=== PATIENT | female | born 1950 | race Caucasian/White ===

== ENCOUNTER 2018-01-12 07:17 | Day surgery (SDC) | payer MEDICARE, MEDICAID ==
[~2018-01-12 07:17] MED LIST: Cefuroxime 10 MG/ML SYRINGE EYELF SCH; Pilocarpine 4% Ophth Soln 15 ML Bot EYELF SCH
[2018-01-12] MEDS: Polymyxin B/Trimethoprim 10 ML Bottle EYELF SCH ×3 (07:27→09:04)
[2018-01-12] MEDS: Brimonidine 0.2% Ophth Soln 5 ML Bottle EYELF SCH ×3 (07:32→09:04)
[2018-01-12] MEDS: Phenylephrine 2.5% Ophth Soln 2 ML Bot EYELF SCH ×5 (07:37→08:45)
[2018-01-12] MEDS ORDERED: Lidocaine 1% 50 ML MDV INJECT SCH (07:45)
--- NOTE | 2018-01-12 07:46 | PCM.PREANE ---
Preanesthetic Assessment - Procedure Proposed Procedure: Left Eye cataract extraction with implant - Anesthesia/Transfusion/Family Hx Anesthesia History: Prior Anesthesia Without Reaction Family History of Anesthesia Reaction: No Transfusion History: No Prior Transfusion(s) - Review of Systems General: No Symptoms Pulmonary: No Symptoms Cardiovascular: No Symptoms, Other (pacemaker no issues with it, placed for high heart rate per patient ) Gastrointestinal: No Symptoms Neurological: No Symptoms Other: Reports: Diabetes (on oral med ), Thyroid Problems (hypothyroid) - Physical Assessment NPO Status Date: 01/11/18 NPO Status Time: 21:30 O2 Sat by Pulse Oximetry: 97 Respiratory Rate: 16 Vital Signs: Last Vital Signs Temp 36.4 C 01/12/18 07:20 Pulse 70 01/12/18 07:20 Resp 16 01/12/18 07:20 BP 157/66 H 01/12/18 07:20 Pulse Ox 97 01/12/18 07:20 Height: 1.52 m Weight: 61.235 kg ASA Class: 2 Mental Status: Alert & Oriented x3 Airway Class: Mallampati = 1 Dentition: Reports: Missing Tooth/Teeth Thyro-Mental Finger Breadths: 3 Mouth Opening Finger Breadths: 5 ROM/Head Extension: Full Lungs: Clear to Auscultation, Normal Respiratory Effort Cardiovascular: Regular Rate, Regular Rhythm - Allergies Allergies/Adverse Reactions: Allergies Allergy/AdvReac Type Severity Reaction Status Date / Time Penicillins Allergy Swollen Verified 01/11/18 15:35 Tongue prochlorperazine Allergy Swollen Verified 01/11/18 15:35 [From Compazine] Tongue prochlorperazine edisylate Allergy Swollen Verified 01/11/18 15:35 [From Compazine] Tongue prochlorperazine maleate Allergy Swollen Verified 01/11/18 15:35 [From Compazine] Tongue - Blood Blood Available: No - Anesthesia Plan Beta Kerline: Metoprolol Med Last Dose Date: 01/11/18 Med Last Dose Time: 19:30 - Acknowledgements Anesthesia Type Planned: MAC Pt an Appropriate Candidate for the Planned Anesthesia: Yes Alternatives and Risks of Anesthesia Discussed w Pt/Guardian: Yes Pt/Guardian Understands and Agrees with Anesthesia Plan: Yes PreAnesthesia Questionnaire Other HEENT History: wears eyeglasses Cardiovascular History: Reports: High Cholesterol, Hypertension, Pacemaker Genitourinary History: Reports: Renal Calculus Musculoskeletal History: Reports: Osteoarthritis Neurological History: Reports: None Psychiatric History: Reports: None Endocrine/Metabolic History: Reports: Diabetes, Type II, Hypothyroidism Hematologic History: Reports: None Immunologic History: Reports: None Oncologic (Cancer) History: Reports: None Dermatologic History: Reports: None - Past Surgical History Cardiovascular Surgical History: Reports: Coronary Artery Stent, Pacer - SUBSTANCE USE Smoking Status *Q: Never Smoker Recreational Drug Use History: No - HOME MEDS Home Medications: Home Meds Acetaminophen [Tylenol] 500 mg PO DAILY PRN 08/24/15 [History] Aspirin 81 mg PO DAILY 08/24/15 [History] Lisinopril 5 mg PO DAILY 08/24/15 [History] Metoprolol Succinate [Toprol XL] 75 mg PO BID 08/24/15 [History] Nitroglycerin [Nitrostat] 0.4 mg SL ASDIRECTED PRN 08/24/15 [History] Rosuvastatin [Crestor] 20 mg PO DAILY 08/24/15 [History] metFORMIN [Glucophage] 500 mg PO BID 08/24/15 [History] Levothyroxine 125 mg PO DAILY 01/11/18 [History] - CURRENT (IN HOUSE) MEDS Current Meds: Current Medications Brimonidine Tartrate (Alphagan 0.2% Ophth Soln) 0 ml EYELF ASDIRECTED NAM Stop: 01/12/18 18:00 Last Admin: 01/12/18 07:32 Dose: 1 drop Cefuroxime Sodium (Zinacef) 0 mg EYELF ASDIRECTED NAM Stop: 01/12/18 18:00 Lidocaine HCl (Xylocaine 1%) 1 ml INJECT ONETIME NAM Phenylephrine HCl (Herb-Synephrine 2.5% Ophth Soln) 0 ml EYELF ASDIRECTED NAM Stop: 01/12/18 18:00 Last Admin: 01/12/18 07:37 Dose: 1 drop Pilocarpine HCl (Pilocar 4% Ophth Soln) 0 ml EYELF ASDIRECTED NAM Stop: 01/12/18 18:00 Polymyxin/Trimethoprim Sulfate (Polytrim Ophth Soln) 0 ml EYELF ASDIRECTED NAM Stop: 01/12/18 18:00 Last Admin: 01/12/18 07:27 Dose: 1 drop Tetracaine HCl (Tetracaine 0.5% Steri-Unit Veronika) 0 ml EYELF ASDIRECTED NAM Stop: 01/12/18 18:00 Tropicamide (Mydriacyl 1% Ophth Soln) 0 ml EYELF ASDIRECTED NAM Stop: 01/12/18 18:00
[2018-01-12] MEDS: Tetracaine HCl/PF 0.5% 4 ML Bottle EYELF SCH ×2 (08:30→08:50)
[2018-01-12 09:14] VITALS: BP 157/76
--- NOTE | 2018-01-12 09:14 | PCM48HPAN ---
Post Anesthesia Note - EVALUATION WITHIN 48HRS OF ANESTHETIC Vital Signs in Normal Range: Yes Patient Participated in Evaluation: Yes Respiratory Function Stable: Yes Airway Patent: Yes Cardiovascular Function Stable: Yes Hydration Status Stable: Yes Pain Control Satisfactory: Yes Nausea and Vomiting Control Satisfactory: Yes Mental Status Recovered: Yes Pulse Rate: 62 SaO2: 97 Resp Rate: 16 Temperature: 36.6 C Blood Pressure: 157/76
== END 2018-01-12 09:19 | disposition home or self-care (01) ==
LOC: JD.SDS 07:17
PROVIDERS: ATTEND Ophthalmology
DX: H26.9 Unspecified cataract (principal); H21.81 Floppy iris syndrome; H21.42 Pupillary membranes, left eye; I10 Essential (primary) hypertension; E11.9 Type 2 diabetes mellitus without complications; E78.00 Pure hypercholesterolemia, unspecified; Z90.49 Acquired absence of other specified parts of digestive tract; Z95.0 Presence of cardiac pacemaker; Z79.82 Long term (current) use of aspirin; Z79.84 Long term (current) use of oral hypoglycemic drugs; Z79.899 Other long term (current) drug therapy
CPT/HCPCS: A9270-GY

== ENCOUNTER 2018-02-09 09:27 | Day surgery (SDC) | payer MEDICARE, MEDICAID ==
[~2018-02-09 09:27] MED LIST changes: -Cefuroxime 10 MG/ML SYRINGE EYELF SCH; +Cefuroxime 10 MG/ML SYRINGE EYERT SCH; +Lidocaine 1% PF 2 ML SDV INJECT SCH; -Pilocarpine 4% Ophth Soln 15 ML Bot EYELF SCH; +Pilocarpine 4% Ophth Soln 15 ML Bot EYERT SCH
[2018-02-09] MEDS: Polymyxin B/Trimethoprim 10 ML Bottle EYERT SCH ×3 (10:17→12:08)
[2018-02-09] MEDS: Brimonidine 0.2% Ophth Soln 5 ML Bottle EYERT SCH ×3 (10:22→12:08)
[2018-02-09] MEDS: Phenylephrine 2.5% Ophth Soln 2 ML Bot EYERT SCH ×5 (10:27→11:44)
--- NOTE | 2018-02-09 10:27 | PCM.PREANE ---
Preanesthetic Assessment - Procedure Proposed Procedure: cataract right - Anesthesia/Transfusion/Family Hx Anesthesia History: Prior Anesthesia Without Reaction Family History of Anesthesia Reaction: No Transfusion History: No Prior Transfusion(s) - Review of Systems General: No Symptoms Pulmonary: No Symptoms Cardiovascular: No Symptoms Gastrointestinal: No Symptoms Neurological: No Symptoms Other: Reports: Diabetes, Thyroid Problems - Physical Assessment NPO Status Date: 02/08/18 NPO Status Time: 21:00 O2 Sat by Pulse Oximetry: 99 Respiratory Rate: 16 Vital Signs: Last Vital Signs Temp 97.9 F 02/09/18 10:10 Pulse 78 02/09/18 10:10 Resp 16 02/09/18 10:10 BP 133/75 02/09/18 10:10 Pulse Ox 99 02/09/18 10:10 Height: 5 ft Weight: 61.235 kg ASA Class: 2 Mental Status: Alert & Oriented x3 Airway Class: Mallampati = 1 Dentition: Reports: Missing Tooth/Teeth Thyro-Mental Finger Breadths: 3 Mouth Opening Finger Breadths: 3 ROM/Head Extension: Full Lungs: Clear to Auscultation, Normal Respiratory Effort Cardiovascular: Regular Rate, Regular Rhythm - Allergies Allergies/Adverse Reactions: Allergies Allergy/AdvReac Type Severity Reaction Status Date / Time Penicillins Allergy Swollen Verified 02/08/18 11:36 Tongue prochlorperazine Allergy Swollen Verified 02/08/18 11:36 [From Compazine] Tongue prochlorperazine edisylate Allergy Swollen Verified 02/08/18 11:36 [From Compazine] Tongue prochlorperazine maleate Allergy Swollen Verified 02/08/18 11:36 [From Compazine] Tongue - Blood Blood Available: No - Anesthesia Plan Pre-Op Medication Ordered: Beta Kerline Beta Kerline: Metoprolol Med Last Dose Date: 02/09/18 Med Last Dose Time: 06:30 - Acknowledgements Anesthesia Type Planned: MAC Pt an Appropriate Candidate for the Planned Anesthesia: Yes Alternatives and Risks of Anesthesia Discussed w Pt/Guardian: Yes Pt/Guardian Understands and Agrees with Anesthesia Plan: Yes PreAnesthesia Questionnaire Other HEENT History: wears eyeglasses Cardiovascular History: Reports: High Cholesterol, Hypertension, Pacemaker Respiratory History: Reports: None Gastrointestinal History: Reports: GERD (seldom) Genitourinary History: Reports: Renal Calculus Musculoskeletal History: Reports: Osteoarthritis Neurological History: Reports: None Psychiatric History: Reports: None Endocrine/Metabolic History: Reports: Diabetes, Type II, Hypothyroidism Hematologic History: Reports: None Immunologic History: Reports: None Oncologic (Cancer) History: Reports: None Dermatologic History: Reports: None - Past Surgical History HEENT Surgical History: Reports: Cataract Surgery Cardiovascular Surgical History: Reports: Coronary Artery Stent, Pacer - SUBSTANCE USE Smoking Status *Q: Never Smoker Tobacco Use Within Last Twelve Months: No Second Hand Smoke Exposure: Yes Days Per Week of Alcohol Use: 0 Recreational Drug Use History: No - HOME MEDS Home Medications: Home Meds Acetaminophen [Tylenol] 500 mg PO DAILY PRN 08/24/15 [History] Aspirin 81 mg PO DAILY 08/24/15 [History] Lisinopril 5 mg PO DAILY 08/24/15 [History] Metoprolol Succinate [Toprol XL] 75 mg PO BID 08/24/15 [History] Nitroglycerin [Nitrostat] 0.4 mg SL ASDIRECTED PRN 08/24/15 [History] Rosuvastatin [Crestor] 20 mg PO DAILY 08/24/15 [History] metFORMIN [Glucophage] 500 mg PO BID 08/24/15 [History] Levothyroxine 125 mg PO DAILY 01/11/18 [History] - CURRENT (IN HOUSE) MEDS Current Meds: Current Medications Brimonidine Tartrate (Alphagan 0.2% Ophth Soln) 0 ml EYERT ASDIRECTED NAM Stop: 02/09/18 18:00 Cefuroxime Sodium (Zinacef) 0 mg EYERT ASDIRECTED NAM Stop: 02/09/18 18:00 Lidocaine HCl (Xylocaine-Mpf 1%) 10 ml INJECT ASDIRECTED NAM Stop: 02/09/18 18:00 Phenylephrine HCl (Herb-Synephrine 2.5% Ophth Soln) 0 ml EYERT ASDIRECTED NAM Stop: 02/09/18 18:00 Pilocarpine HCl (Pilocar 4% Ophth Soln) 0 ml EYERT ASDIRECTED NAM Stop: 02/09/18 18:00 Polymyxin/Trimethoprim Sulfate (Polytrim Ophth Soln) 0 ml EYERT ASDIRECTED NAM Stop: 02/09/18 18:00 Last Admin: 02/09/18 10:17 Dose: 1 drop Tetracaine HCl (Tetracaine 0.5% Steri-Unit Veronika) 0 ml EYERT ASDIRECTED NAM Stop: 02/09/18 18:00 Tropicamide (Mydriacyl 1% Oph Soln) 0 ml EYERT ASDIRECTED NAM Stop: 02/09/18 18:00
[2018-02-09] MEDS: Tetracaine HCl/PF 0.5% 4 ML Bottle EYERT SCH ×2 (11:35→11:59)
--- NOTE | 2018-02-09 12:13 | PCM48HPAN ---
Post Anesthesia Note - EVALUATION WITHIN 48HRS OF ANESTHETIC Patient Participated in Evaluation: Yes Respiratory Function Stable: Yes Airway Patent: Yes Cardiovascular Function Stable: Yes Hydration Status Stable: Yes Pain Control Satisfactory: Yes Nausea and Vomiting Control Satisfactory: Yes Mental Status Recovered: Yes Pulse Rate: 63 SaO2: 100 Resp Rate: 16 Temperature: 97.5 C Blood Pressure: 143/74
[2018-02-09 12:24] VITALS: BP 139/70
== END 2018-02-09 12:20 | disposition home or self-care (01) ==
LOC: JD.SDS 09:27
PROVIDERS: ATTEND Ophthalmology
DX: H26.9 Unspecified cataract (principal); E11.36 Type 2 diabetes mellitus with diabetic cataract; I10 Essential (primary) hypertension; E78.00 Pure hypercholesterolemia, unspecified; Z79.82 Long term (current) use of aspirin; Z79.84 Long term (current) use of oral hypoglycemic drugs; Z79.899 Other long term (current) drug therapy; Z88.0 Allergy status to penicillin; Z88.8 Allergy status to other drugs, medicaments and biological substances
CPT/HCPCS: 66984; J0697; V2632; A9270-GY

== ENCOUNTER 2018-04-28 03:45 | Emergency (ER) | payer MEDICARE, MEDICAID ==
[2018-04-28 03:51] VITALS: BP 164/73
--- NOTE | 2018-04-28 03:55 | EDM.PDOC ---
ED HPI GENERAL MEDICAL PROBLEM - General Chief Complaint: Cardiovascular Problem Stated Complaint: [facility] Time Seen by Provider: 04/28/18 03:54 Source of Information: Reports: Patient History Limitations: Reports: No Limitations - History of Present Illness INITIAL COMMENTS - FREE TEXT/NARRATIVE: 67-year-old female presents the ED per ambulance from [place]. She is feeling lightheaded ,dizzy and nauseated. She started a new medication I believe Zoloft yesterday afternoon. She started to feel unwell couple hours after this. She did not eat any supper last night. She such only has developed nausea with dry heaves and one small bilious emesis. She also has had 3 very mild loose stools. No blood noted. She feels unstable when she is up and walking as if she is off balance. She has not fallen. She still feels extremely nauseated at this time. No chest pain. For a while she broke out in a cold sweat. She was concerned this might be related to her heart. She was just in see Dr. Solares yesterday at the clinic and had complete 3 month checkup. Blood work was ordered at that time and sent to [facility] for evaluation including her thyroid function studies. Her on Zoloft 25 mg tablet yesterday afternoon because she is feeling somewhat depressed with mood volatility. She is not aware of any fever or chills. Onset: Sudden Onset Date: 04/27/18 Onset Time: 17:00 Duration: Hour(s): Location: Reports: Head (Feels dizzy lightheaded and offkilter with walking.), Other (Nausea and loose stools 3.) Quality: Reports: Other (Off balance feeling with associated nausea.) Severity: Moderate Improves with: Reports: Rest Worsens with: Reports: Movement Context: Denies: Activity, Exercise, Lifting, Sick Contact, Trauma, Other Associated Symptoms: Reports: Diaphoresis, Loss of Appetite, Malaise, Nausea/ Vomiting, Weakness (Nausea and dry heaves.). 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.) - Related Data Allergies Allergy/AdvReac Type Severity Reaction Status Date / Time Penicillins Allergy Swollen Verified 04/28/18 03:51 Tongue prochlorperazine Allergy Swollen Verified 04/28/18 03:51 [From Compazine] Tongue prochlorperazine edisylate Allergy Swollen Verified 04/28/18 03:51 [From Compazine] Tongue prochlorperazine maleate Allergy Swollen Verified 04/28/18 03:51 [From Compazine] Tongue Home Meds: Home Meds Acetaminophen [Tylenol] 500 mg PO DAILY PRN 08/24/15 [History] Aspirin 81 mg PO DAILY 08/24/15 [History] Lisinopril 2.5 mg PO DAILY 08/24/15 [History] Metoprolol Succinate [Toprol XL] 75 mg PO BID 08/24/15 [History] Nitroglycerin [Nitrostat] 0.4 mg SL ASDIRECTED PRN 08/24/15 [History] Rosuvastatin [Crestor] 20 mg PO DAILY 08/24/15 [History] metFORMIN [Glucophage] 500 mg PO BID 08/24/15 [History] Levothyroxine 125 mg PO DAILY 01/11/18 [History] Sertraline [Zoloft] 25 mg PO DAILY 04/28/18 [History] Past Medical History Other HEENT History: wears eyeglasses Cardiovascular History: Reports: High Cholesterol, Hypertension, Pacemaker Respiratory History: Reports: None Gastrointestinal History: Reports: GERD Genitourinary History: Reports: Renal Calculus Musculoskeletal History: Reports: Osteoarthritis Neurological History: Reports: None Psychiatric History: Reports: None Endocrine/Metabolic History: Reports: Diabetes, Type II, Hypothyroidism Hematologic History: Reports: None Immunologic History: Reports: None Oncologic (Cancer) History: Reports: None Dermatologic History: Reports: None - Past Surgical History HEENT Surgical History: Reports: Cataract Surgery Cardiovascular Surgical History: Reports: Coronary Artery Stent, Pacer Social & Family History - Family History Family Medical History: Noncontributory Oncologic: Reports: None - Tobacco Use Smoking Status *Q: Never Smoker - Caffeine Use Caffeine Use: Reports: Coffee - Recreational Drug Use Recreational Drug Use: No - Living Situation & Occupation Occupation: Employed ED ROS GENERAL - Review of Systems Review Of Systems: See Below Constitutional: Reports: Malaise, Weakness, Fatigue, Decreased Appetite. Denies : Fever, Chills HEENT: Reports: Glasses. Denies: Vertigo Respiratory: Denies: Shortness of Breath, Wheezing, Pleuritic Chest Pain, Cough , Sputum Cardiovascular: Reports: Blood Pressure Problem, Lightheadedness, Other (Sense of feeling off balance with walking). Denies: Chest Pain, Claudication, Dyspnea on Exertion, Edema, Orthopnea (Elevated blood pressure), Palpitations, PND, Syncope Endocrine: Reports: No Symptoms GI/Abdominal: Reports: Diarrhea, Decreased Appetite, Nausea, Vomiting (1 small emesis.). Denies: Abdominal Pain : Reports: No Symptoms Musculoskeletal: Reports: No Symptoms Skin: Reports: Diaphoresis (For short period of time before she dry heave.) Neurological: Reports: Dizziness, Difficulty Walking (Feeling off balance with walking.). Denies: Confusion Psychiatric: Reports: Depression, Mood Lability Hematologic/Lymphatic: Reports: No Symptoms Immunologic: Reports: No Symptoms ED EXAM, GENERAL - Physical Exam Exam: See Below Exam Limited By: No Limitations General Appearance: Alert, WD/WN, No Apparent Distress, Other (Vital signs are normal and she is not orthostatic. She is mildly hypertensive at this time.) Eye Exam: Right Eye: Nystagmus (She does have mild right-sided nystagmus with 4- 5 beats on lateral gaze.), Bilateral Eye: Normal Inspection, PERRL Ears: Normal TMs Throat/Mouth: Normal Inspection, Normal Lips, Normal Teeth, Normal Oropharynx Head: Atraumatic, Normocephalic Neck: Normal Inspection, Supple, Non-Tender, Full Range of Motion Respiratory/Chest: No Respiratory Distress, Lungs Clear, Normal Breath Sounds, No Accessory Muscle Use Cardiovascular: Normal Peripheral Pulses, Regular Rate, Rhythm, No Edema, No Gallop, No Murmur Peripheral Pulses: 2+: Posterior Tibial (L), Posterior Tibial (R), Dorsalis Pedis (L), Dorsalis Pedis (R) GI/Abdominal: Normal Bowel Sounds, Soft, Non-Tender, No Organomegaly, No Abnormal Bruit, No Mass, Other (Previous appendectomy scar right lower quadrant and open.) Back Exam: Normal Inspection, Full Range of Motion. No: CVA Tenderness (L), CVA Tenderness (R) Extremities: Normal Inspection, Normal Range of Motion, Non-Tender, No Pedal Edema Neurological: Alert, Oriented, CN II-XII Intact, Normal Cognition, No Motor/ Sensory Deficits, Other (Normal finger to nose assessment normal rapid alternating movements. No pronator drift. No tremor) Psychiatric: Normal Affect, Normal Mood Skin Exam: Warm, Dry, Intact, Normal Color, No Rash EKG INTERPRETATION EKG Date: 04/28/18 Time: 03:52 Rhythm: NSR Rate (Beats/Min): 70 [place]: Normal P-Wave: Present QRS: Other (There is early R-wave transition consider septal hypertrophy pattern.) ST-T: Other (Diffuse T-wave flattening with repolarization abnormality.) QT: Prolonged (QT interval is moderately prolonged at 533. QTC is 571.) EKG Interpretation Comments: Abnormal ECG Course - Vital Signs Last Recorded V/S: Last Vital Signs Temp 36.2 C 04/28/18 03:46 Pulse 73 04/28/18 03:46 Resp 16 04/28/18 03:46 BP 164/73 H 04/28/18 03:46 Pulse Ox 96 04/28/18 03:46 Orthostatic Blood Pressure [ 150/79 Standing] Orthostatic Blood Pressure [ 154/75 Sitting] Orthostatic Blood Pressure [ 164/73 Supine] - Orders/Labs/Meds Orders: Active Orders 24 hr Category Date Time Status EKG Documentation Completion [RC] STAT Care 04/28/18 04:14 Active URINALYSIS W/MICROSCOPIC [UA W/MICROSCOPIC] [URIN] Stat Lab 04/28/18 05:39 Ordered Sodium Chloride 0.9% [Normal Saline] 1,000 ml Med 04/28/18 04:15 Active IV ASDIRECTED Medication Orders Sodium Chloride (Normal Saline) 1,000 mls @ 200 mls/hr IV ASDIRECTED NAM Last Admin: 04/28/18 04:21 Dose: 200 mls/hr Labs: Laboratory Tests 04/28/18 04/28/18 Range/Units 04:25 04:25 WBC 10.13 H (3.98-10.04) K/mm3 RBC 4.17 (3.98-5.22) M/mm3 Hgb 12.0 (11.2-15.7) gm/L Hct 37.2 (34.1-44.9) % MCV 89.2 (79.4-94.8) fl MCH 28.8 (25.6-32.2) pg MCHC 32.3 (32.2-35.5) g/dl RDW Std Deviation 43.2 (36.4-46.3) fL Plt Count 270 (182-369) K/mm3 MPV 9.0 L (9.4-12.3) fl Neutrophils % (Manual) 87 H (40-60) % Band Neutrophils % 1 (0-10) % Lymphocytes % (Manual) 6 L (20-40) % Atypical Lymphs % 0 % Monocytes % (Manual) 5 (2-10) % Eosinophils % (Manual) 0 L (0.7-5.8) % Basophils % (Manual) 0 L (0.1-1.2) Metamyelocytes % 1 Platelet Estimate Adequate RBC Morph Comment Normal Sodium 138 (136-145) mEq/L Potassium 3.4 L (3.5-5.1) mEq/L Chloride 103 (98-107) mEq/L Carbon Dioxide 26 (21-32) mEq/L Anion Gap 12.4 (5-15) BUN 17 (7-18) mg/dL Creatinine 1.4 H (0.55-1.02) mg/dL Est Cr Clr Drug Dosing 28.01 mL/min Estimated GFR (MDRD) 38 (>60) mL/min BUN/Creatinine Ratio 12.1 L (14-18) Glucose 207 H (80-115) mg/dL Calcium 9.3 (8.5-10.1) mg/dL Magnesium 1.7 L (1.8-2.4) mg/dl Total Bilirubin 0.4 (0.2-1.0) mg/dL AST 22 (15-37) U/L ALT 17 (14-59) U/L Alkaline Phosphatase 72 (46-116) U/L Troponin I < 0.017 (0.00-0.056) ng/mL C-Reactive Protein < 0.2 (<1.0) mg/dL Total Protein 8.1 (6.4-8.2) g/dl Albumin 3.8 (3.4-5.0) g/dl Globulin 4.3 gm/dL Albumin/Globulin Ratio 0.9 L (1-2) Meds: Medications Generic Name Dose Route Start Last Admin Trade Name Freq PRN Reason Stop Dose Admin Sodium Chloride 1,000 mls @ 200 mls/hr 04/28/18 04:15 04/28/18 04:21 Normal Saline IV 200 mls/hr ASDIRECTED NAM Administration Discontinued Medications Generic Name Dose Route Start Last Admin Trade Name Phuc PRN Reason Stop Dose Admin Meclizine HCl 12.5 mg 04/28/18 05:40 04/28/18 05:56 Antivert PO 04/28/18 05:41 12.5 mg ONETIME ONE Administration Metoclopramide HCl 7.5 mg 04/28/18 04:14 04/28/18 04:21 Reglan IVPUSH 04/28/18 04:15 7.5 mg ONETIME ONE Administration - Radiology Interpretation Free Text/Narrative:: 67-year-old female presents to the ED per ambulance from [place]. Patient states she developed upset stomach with nausea and then associate lightheaded dizziness which I interpreted as mild vertigo symptoms after taking her first tablet of Zoloft 25 mg yesterday. She has had dry heaves and is still very nauseated. She's had 3 loose stools as well. She was just to see Dr. Solares yesterday afternoon and she had taken the Zoloft on a Empty stomac He feels shaky and tremulous. Examination shows mild nystagmus on looking to the right lateral gaze with only force sustained beats however. The remainder of her neuro exam is completely normal heart is sinus at 70/m with a prolonged QT interval. The remainder of her exam is essentially normal. Plan normal saline at 200 mils per hour. We'll give her Reglan 7.5 mg IV for nausea relief and ability to get up and walking and I will see if she is truly vertiginous. Routine labs ordered. - Re-Assessments/Exams Free Text/Narrative Re-Assessment/Exam: 04/28/18 05:38 Labs are back. White count is 10.13 with 87% neutrophils and 1% band. Hemoglobin is 12.0 with hematocrit of 37.2. Sodium is 138 with potassium slightly low at 3.4. Chloride is 103 with a bicarbonate of 26. And a gap is 12.4. BUN is 17 with a creatinine of 1.4. Glucose is 207. Calcium is 9.3. Magnesium slightly low at 1.7. Liver function normal. Troponin I is less than 0.017. C-reactive protein is less than 0.2. We had her up walking in the hallways. She felt a little bit unstable and night person my perception is that there is mild vertigo. Labs came back just after this. They suggest a mild stress response but I will get a urinalysis done since she does have a left shift of her white count. Going to give her 12.5 mg of meclizine by mouth at this time. She is currently sleeping at this time. 04/28/18 06:47 get up walking again and she is doing well. She tends to walk quite slowly. She doesn't feel near as a balance so she did earlier. On reassessment she still has nystagmus 4-5 sustained beats on the right lateral gaze. The remainder of her neuro exam is normal. She is up to the washroom now and will get a urinalysis for assessment. Differential is whether or not she has vertigo or side effects from no medication sertraline. 04/28/18 06:54 I dipped the urinalysis is negative for infection. I'm going to discharge her home . Instructed not to use the sertraline anymore and see how things go over the next few days if her was the medication causing her current symptoms should be better tomorrow. If it is mild vertigo she will still have intermittent vertiginous symptoms that last over the weekend. 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 Departure - Departure Time of Disposition: 06:58 Disposition: Home, Self-Care 01 Condition: Fair Clinical Impression: Adverse effects of medication Qualifiers: Encounter type: initial encounter Qualified Code(s): T50.905A - Adverse effect of unspecified drugs, medicaments and biological substances, initial encounter Forms: ED Department Discharge Additional Instructions: Evaluation in the emergency room this morning in regards to symptoms of feeling unwell since taking first tablet of sertraline 25 mg yesterday afternoon. Combination of symptoms of feeling dizzy, lightheaded ,off balance, tremulous, and nauseated. Tongue is suspect these are side effects of the Zoloft tablet that she took yesterday afternoon. However you have some signs and symptoms that would suggest a poorly functioning balance mechanism or labyrinth on the left side. All of the investigations done through the ED this morning were normal. If off balance symptoms continue over the next 48 hours then I want you to go and purchase [id number] medication Antivert 12.5 mg tablets to be taken 1 tablet every 8 hours for 5 days to bring control of vertigo and off balance symptoms. Follow-up with Dr. Solares next week. - My Orders Last 24 Hours: My Active Orders 04/28/18 04:14 EKG Documentation Completion [RC] STAT 04/28/18 04:15 Sodium Chloride 0.9% [Normal Saline] 1,000 ml IV ASDIRECTED 04/28/18 05:39 URINALYSIS W/MICROSCOPIC [UA W/MICROSCOPIC] [URIN] Stat - Assessment/Plan Last 24 Hours: My Active Orders 04/28/18 04:14 EKG Documentation Completion [RC] STAT 04/28/18 04:15 Sodium Chloride 0.9% [Normal Saline] 1,000 ml IV ASDIRECTED 04/28/18 05:39 URINALYSIS W/MICROSCOPIC [UA W/MICROSCOPIC] [URIN] Stat
[2018-04-28] MEDS ORDERED: Metoclopramide 10 MG/2 ML SDV IVPUSH ONE (04:14)
[2018-04-28] MEDS ORDERED: Sodium Chloride 0.9% 1,000 ML IV SCH (04:15)
[2018-04-28] MEDS ORDERED: Meclizine 12.5 MG Tab PO ONE (05:40)
== END 2018-04-28 08:10 | disposition home or self-care (01) ==
LOC: JD.ED 03:45
DX: R11.2 Nausea with vomiting, unspecified (principal); T43.225A Adverse effect of selective serotonin reuptake inhibitors, initial encounter; E78.00 Pure hypercholesterolemia, unspecified; I10 Essential (primary) hypertension; K21.9 Gastro-esophageal reflux disease without esophagitis; E11.9 Type 2 diabetes mellitus without complications; E03.9 Hypothyroidism, unspecified; Z88.0 Allergy status to penicillin; Z88.8 Allergy status to other drugs, medicaments and biological substances; Z79.82 Long term (current) use of aspirin; Z79.899 Other long term (current) drug therapy; Z79.84 Long term (current) use of oral hypoglycemic drugs
CPT/HCPCS: 36415; 80053; 83735; 84484; 85007; 85027; 86140; 93005; 96361; 96374; 99285; A9270; J2765; J7040

== ENCOUNTER 2020-05-14 17:17 | Emergency (ER) | payer MEDICARE ==
[2020-05-14] MEDS ORDERED: Tamsulosin 0.4 MG Cap.ER PO STA (17:50)
[2020-05-14] MEDS ORDERED: HYDROmorphone 1 MG/ML Syringe IVPUSH STA (17:50)
[2020-05-14] MEDS ORDERED: Ondansetron 4 MG/2 ML SDV IVPUSH ONE (17:50)
[2020-05-14] MEDS ORDERED: Sodium Chloride 0.9% 1,000 ML IV SCH (18:00)
--- NOTE | 2020-05-14 18:18 | EDM.PDOC ---
ED HPI GENERAL MEDICAL PROBLEM - General Chief Complaint: Abdominal Pain Stated Complaint: [facility] Time Seen by Provider: 05/14/20 17:51 Source of Information: Reports: Patient, RN Notes Reviewed History Limitations: Reports: No Limitations - History of Present Illness INITIAL COMMENTS - FREE TEXT/NARRATIVE: Patient is a 70-year-old female who presents to the ED via [facility] for the evaluation of her right side pain. Patient notes that around 1230 this afternoon, she developed some right lower quadrant/side pain, that was associated with nausea and 2 episodes of vomiting. Patient notes that the pain was not too bothersome and she was able to attend a food stand with her friend at [place], but when she got home the pain worsened again. Patient notes she has a history of kidney stones, and it does feel similar, but a little bit more intense. Patient also has had an appendectomy. She states that the pain is dull, also sharp at times, she did not take any sort of medications for pain management. She states she did have a good bowel movement this morning, so does not believe to be constipated. She denies any other sick-like symptoms, f ever/chills, cough/shortness of breath, or any sort of diarrhea. Right Lower Abdomen Pain Score (Numeric/FACES): 10 - Related Data Allergies Allergy/AdvReac Type Severity Reaction Status Date / Time Penicillins Allergy Severe Swollen Verified 05/14/20 17:26 Tongue prochlorperazine Allergy Severe Swollen Verified 05/14/20 17:26 [From Compazine] Tongue prochlorperazine edisylate Allergy Severe Swollen Verified 05/14/20 17:26 [From Compazine] Tongue prochlorperazine maleate Allergy Severe Swollen Verified 05/14/20 17:26 [From Compazine] Tongue Home Meds: Home Meds Acetaminophen [Tylenol] 500 mg PO DAILY PRN 08/24/15 [History] Aspirin 81 mg PO DAILY 08/24/15 [History] Lisinopril 2.5 mg PO DAILY 08/24/15 [History] Metoprolol Succinate [Toprol XL] 75 mg PO BID 08/24/15 [History] Nitroglycerin [Nitrostat] 0.4 mg SL ASDIRECTED PRN 08/24/15 [History] Rosuvastatin [Crestor] 20 mg PO DAILY 08/24/15 [History] Acetaminophen/HYDROcodone [[place] 325-5 MG] 1 tab PO Q6H PRN #15 tablet 05/14/20 [Rx] Levothyroxine [Synthroid] 88 mcg PO DAILY 05/14/20 [History] Linagliptin [Tradjenta] 5 mg PO DAILY 05/14/20 [History] Past Medical History HEENT History: Reports: Impaired Vision Other HEENT History: wears eyeglasses Cardiovascular History: Reports: High Cholesterol, Hypertension, Pacemaker Gastrointestinal History: Reports: GERD Genitourinary History: Reports: Renal Calculus Musculoskeletal History: Reports: Osteoarthritis Endocrine/Metabolic History: Reports: Diabetes, Type II, Hypothyroidism - Past Surgical History HEENT Surgical History: Reports: Cataract Surgery Cardiovascular Surgical History: Reports: Coronary Artery Stent, Pacer GI Surgical History: Reports: Appendectomy Social & Family History - Family History Family Medical History: Noncontributory Oncologic: Reports: None - Tobacco Use Smoking Status *Q: Never Smoker - Caffeine Use Caffeine Use: Reports: None - Recreational Drug Use Recreational Drug Use: No - Living Situation & Occupation Occupation: Employed ED ROS GENERAL - Review of Systems Review Of Systems: Comprehensive ROS is negative, except as noted in HPI. ED EXAM, GI/ABD - Physical Exam Exam: See Below Exam Limited By: No Limitations General Appearance: Alert, WD/WN, No Apparent Distress Eyes: Bilateral: Normal Appearance Respiratory/Chest: No Respiratory Distress, Lungs Clear, Normal Breath Sounds, No Accessory Muscle Use, Chest Non-Tender Cardiovascular: Normal Peripheral Pulses, Regular Rate, Rhythm, No Murmur GI/Abdominal Exam: Normal Bowel Sounds, Soft, Non-Tender, No Distention, No Mass Extremities: Normal Inspection, Normal Capillary Refill Neurological: Alert, Oriented, Normal Cognition, No Motor/Sensory Deficits Psychiatric: Normal Affect, Normal Mood Skin Exam: Warm, Dry, Intact, Normal Color, No Rash Course - Vital Signs Last Recorded V/S: Last Vital Signs Temp 97.3 F 05/14/20 17:21 Pulse 69 05/14/20 17:21 Resp 16 05/14/20 17:21 BP 170/66 H 05/14/20 17:21 Pulse Ox 99 05/14/20 17:21 - Orders/Labs/Meds Orders: Active Orders 24 hr Category Date Time Status Strain Urine [RC] ASDIRECTED Care 05/14/20 17:50 Ordered Sodium Chloride 0.9% [Normal Saline] 1,000 ml Med 05/14/20 18:00 Active IV ASDIRECTED Medication Orders Sodium Chloride (Normal Saline) 1,000 mls @ 150 mls/hr IV ASDIRECTED NAM Last Admin: 05/14/20 18:00 Dose: 150 mls/hr Documented by: JOSEE Labs: Laboratory Tests 05/14/20 Range/Units 19:30 Urine Color [place] H (Yellow) Urine Appearance Cloudy H (Clear) Urine pH 6.0 (5.0-8.0) Ur Specific [place] 1.025 (1.005-1.030) Urine Protein 3+ H (Negative) Urine Glucose (UA) Negative (Negative) Urine Ketones 1+ H (Negative) Urine Occult Blood 3+ H (Negative) Urine Nitrite Negative (Negative) Urine Bilirubin 1+ H (Negative) Urine Urobilinogen 0.2 (0.2-1.0) Ur Leukocyte Esterase Negative (Negative) Urine RBC >100 H (0-5) /hpf Urine WBC 0-5 (0-5) /hpf Ur Squamous Epith Cells 0-5 (0-5) /hpf Urine Bacteria Few (FEW) /hpf Urine Mucus Few (FEW) /hpf Meds: Medications Generic Name Dose Route Start Last Admin Trade Name Freq PRN Reason Stop Dose Admin Sodium Chloride 1,000 mls @ 150 mls/hr 05/14/20 18:00 05/14/20 18:00 Normal Saline IV 150 mls/hr ASDIRECTED NAM Administration Discontinued Medications Generic Name Dose Route Start Last Admin Trade Name Freq PRN Reason Stop Dose Admin Hydromorphone HCl 1 mg 05/14/20 17:50 05/14/20 18:01 Dilaudid IVPUSH 05/14/20 17:51 1 mg ONETIME STA Administration Ondansetron HCl 4 mg 05/14/20 17:50 05/14/20 18:00 Zofran IVPUSH 05/14/20 17:51 4 mg ONETIME ONE Administration Tamsulosin HCl 0.4 mg 05/14/20 17:50 05/14/20 18:01 Flomax PO 05/14/20 17:51 0.4 mg ONETIME STA Administration - Re-Assessments/Exams Free Text/Narrative Re-Assessment/Exam: 05/14/20 18:27 Patient presents to the ER for her right flank/abdomen pain. I did order non- contrast CT for evaluation of possible kidney stone, UA along with IV fluids, pain medications, nausea meds. Highly suspicious for kidney stone in presen tation. 05/14/20 19:[address] is done, and does demonstrate some perinephric stranding, with possible hydroureteronephrosis, suspicious for kidney stone, however I cannot find one on the right by myself, official CT read is still pending at this time. Does appear to be a stone within the right kidney, but I cannot appreciate any ureteral stones by my eye. 05/14/20 19:17 CT report has come back with a dilated right ureter down into the pelvis. There are small calcifications most of which appear outside the ureter all there is one possible calcification which may be with in the distal ureter measuring about 3 mm. Some of the ureteral dilatation may relate to a ureteral stricture as the ureter becomes normal in size prior to the questionable ureteral stone. There is also a small nonobstructing stone within the kidney, otherwise no other acute findings at this time. Still has not provided urine for sampling at this time. 05/14/20 20:22 Urinalysis does demonstrate quite a bit of blood within the urine, which is suggestive of the kidney stone. We will treat for this with some pain medications, and discharge the patient home with general recommendations. I did also make her aware of the possible stricture, and told her she would likely benefit from a urological referral. Departure - Departure Time of Disposition: 20:22 Disposition: Home, Self-Care 01 Condition: Good Clinical Impression: Kidney stone on right side - Discharge Information *PRESCRIPTION DRUG MONITORING PROGRAM REVIEWED*: Yes *COPY OF PRESCRIPTION DRUG MONITORING REPORT IN PATIENT GARRET: No Prescriptions: Acetaminophen/HYDROcodone [[place] 325-5 MG] 1 tab PO Q6H PRN #15 tablet PRN Reason: Pain Instructions: Dietary Guidelines to Help Prevent Kidney Stones, Kidney Stones, [id number] Forms: ED Department Discharge Additional Instructions: You were evaluated in the ER today for your R flank pain. Your urinalysis did demonstrate some blood in urine, which is suggestive of a kidney stone at this time. A CT was done at this ER visit, this demonstrated a 3 mm stone within the right UVJ, with the possibility of a stricture within the ureter, this is a narrowing of the opening of the ureter. You have been given a strainer, please use every time you use the bathroom to make sure that the kidney stone has passed. Recommend that you increase your oral fluid intake to try to help the stone pass. You have been given a few tablets of pain medication, please take as prescribed. These medications are highly addictive, please take as few as you need to. These medications also may cause constipation, please take a stool softener like MiraLAX while taking these medications. If your pain is not much better in a week's time, you may need to follow up with your primary care physician, for a possible urology referral. I would highly suggest following up to get a urological referral regarding the possibility of the stricture, to see if there is anything that they can do for management of this. Please return to the ED if your symptoms change or worsen. Sepsis Event Note (ED) - Evaluation Sepsis Screening Result: No Definite Risk - Focused Exam Vital Signs: Vital Signs Temp Pulse Resp BP Pulse Ox 05/14/20 17:21 97.3 F 69 16 170/66 H 99 - My Orders Last 24 Hours: My Active Orders 05/14/20 17:50 Strain Urine [RC] ASDIRECTED 05/14/20 18:00 Sodium Chloride 0.9% [Normal Saline] 1,000 ml IV ASDIRECTED - Assessment/Plan Last 24 Hours: My Active Orders 05/14/20 17:50 Strain Urine [RC] ASDIRECTED 05/14/20 18:00 Sodium Chloride 0.9% [Normal Saline] 1,000 ml IV ASDIRECTED
--- NOTE | 2020-05-14 19:13 | CT ---
CT abdomen and pelvis Technique: Multiple axial sections were obtained from above the dome of the diaphragm inferiorly through the pubic symphysis. Intravenous and oral contrast not utilized. Study performed as a ureteral stone protocol. Findings: There is a dilated right ureter down into the pelvis. There are small calcifications most of which appear outside the ureter although there is one possible calcification which may be a within the distal ureter measuring about 3 mm. Some of this ureteral dilatation may relate to a ureteral stricture as the ureter becomes normal in size prior to the questionable ureteral stone. Left ureter is normal. Small nonobstructing stone is noted within the right kidney. Left kidney shows no abnormal calcifications. Visualized lung bases show nothing acute. 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 Adrenal glands show no nodule. Pancreas shows no discrete abnormality. Gallbladder contains no calcified gallstones. Aorta shows no aneurysm. No retroperitoneal adenopathy or mesenteric abnormalities are seen. Minimal fat-containing umbilical hernia is noted. No pelvic mass or adenopathy is seen. No free fluid or inflammatory change is appreciated. Appendix is not visualized with certainty. Bone window settings were reviewed which shows mild degenerative change scattered within the spine. No acute osseous finding is seen. Impression: 1. Dilated right sided collecting system and right ureter. Ureter becomes nondilated distally within the pelvis. Within this nondilated ureter there may be a 3 mm stone. Some of this dilatation may relate to a distal ureteral stricture. 2. Small nonobstructing stone within the right kidney. 3. Other findings which are nonacute as described above. Diagnostic code #3 This report was dictated in MDT
[2020-05-14 20:54] VITALS: BP 136/78; PULSE 73
== END 2020-05-14 20:45 | disposition home or self-care (01) ==
LOC: JD.ED 17:17
DX: N20.0 Calculus of kidney (principal); E03.9 Hypothyroidism, unspecified; E78.00 Pure hypercholesterolemia, unspecified; I10 Essential (primary) hypertension; Z88.0 Allergy status to penicillin; Z88.8 Allergy status to other drugs, medicaments and biological substances; Z79.82 Long term (current) use of aspirin; Z79.899 Other long term (current) drug therapy; Z79.84 Long term (current) use of oral hypoglycemic drugs
CPT/HCPCS: 74176; 81001; 96361; 96374; 96375; 99285; A9270; J1170; J2405; J7030; 99283

== ENCOUNTER 2023-05-29 23:48 | Emergency (ER) | payer MEDICARE, MEDICAID ==
[2023-05-30 00:56] LABS: BASOPHILS ABSOLUTE AUTO 0.05 K/mm3 (0.01-0.08); BASOPHILS PERCENT AUTO 0.2 % (0.1-1.2); EOSINOPHILS ABSOLUTE AUTO 0.01 K/mm3 (0.04-0.36); EOSINOPHILS PERCENT AUTO 0 (0.7-5.8); HEMATOCRIT 41.6 % (34.1-44.9); HEMOGLOBIN 13.1 gm/dl (11.2-15.7); IMMATURE GRAN ABSOLUTE AUTO 0.09 K/mm3 (0.00-0.10); IMMATURE GRAN PERCENT AUTO 0.4 % (<=1.0); LYMPHOCYTES PERCENT AUTO 12.4 % (19.3-51.7); MEAN CORPUSCULAR HEMOGLOBIN 27.3 pg (25.6-32.2); MEAN CORPUSCULAR HGB CONC 31.5 g/dl (32.2-35.5); MEAN CORPUSCULAR VOLUME 86.7 fl (79.4-94.8); MEAN PLATELET VOLUME 9.4 fl (9.4-12.3); MONOCYTES ABSOLUTE AUTO 1.68 K/mm3 (0.24-0.36); MONOCYTES PERCENT AUTO 6.9 % (4.7-12.5); NEUTROPHILS ABSOLUTE AUTO 19.39 K/mm3 (1.56-6.13); NEUTROPHILS PERCENT AUTO 80.1 % (34.0-71.1); PLATELET COUNT,PLT 347 K/mm3 (182-369); WHITE BLOOD CELL COUNT,WBC 24.22 K/mm3 (3.98-10.04)
[2023-05-30 01:20] LABS: SLIDE REVIEW ABNORMAL SMEAR
[2023-05-30 01:32] LABS: A/G RATIO 0.7 (1-2); ALANINE AMINOTRANSFERASE,ALT 14 U/L (14-59); ALBUMIN 3.1 g/dl (3.4-5.0); ALKALINE PHOSPHATASE 107 U/L (46-116); ANION GAP 20.3 (5-15); ASPARTATE AMNIOTRANSFERASE,AST 18 U/L (15-37); BILIRUBIN TOTAL 0.3 mg/dL (0.2-1.0); BLOOD UREA NITROGEN,BUN 27 mg/dL (7-18); BUN/CREATININE RATIO 15.9 (14-18); C-REACTIVE PROTEIN <0.2 mg/dL (<1.0); CALCIUM 9.1 mg/dL (8.5-10.1); CARBON DIOXIDE,CO2 18 mEq/L (21-32); CHLORIDE,CL 98 mEq/L (98-107); CREATININE 1.7 mg/dL (0.55-1.02); EST CRCL DRUG DOSING (CG) 21.17 mL/min; ESTIMATED GFR 31 mL/min (>60); MAGNESIUM 1.8 mg/dL (1.8-2.4); POTASSIUM,K 4.3 mEq/L (3.5-5.1); PROTEIN TOTAL,TP 7.9 g/dl (6.4-8.2); SODIUM,NA 132 mEq/L (136-145)
[2023-05-30 01:35] LABS: GLUCOSE RANDOM 491 mg/dL (70-99); TROPONIN I HIGH SENSITIVITY 1381 pg/mL (<=51)
[2023-05-30] MEDS ORDERED: Furosemide 40 MG/4 ML VIAL IVPUSH ONE (01:52)
[2023-05-30] MEDS ORDERED: Aspirin 81 MG Tab.Chew ONE (01:55)
[2023-05-30] MEDS ORDERED: Ondansetron 4 MG/2 ML SDV IVPUSH ONE (02:03)
[2023-05-30 02:41] VITALS: BP 101/65; PULSE 73
== END 2023-05-30 02:45 | disposition other institution (70) ==
LOC: JD.ED 23:48
DX: I21.4 Non-ST elevation (NSTEMI) myocardial infarction (principal); I48.91 Unspecified atrial fibrillation; E78.00 Pure hypercholesterolemia, unspecified; I10 Essential (primary) hypertension; E11.9 Type 2 diabetes mellitus without complications; E03.9 Hypothyroidism, unspecified; Z95.5 Presence of coronary angioplasty implant and graft; Z88.0 Allergy status to penicillin; Z88.8 Allergy status to other drugs, medicaments and biological substances; Z79.82 Long term (current) use of aspirin; Z79.01 Long term (current) use of anticoagulants; Z79.899 Other long term (current) drug therapy
CPT/HCPCS: 36415; 71045; 80053; 82947; 83605; 83735; 83880; 84484; 85025; 86140; 87040; 93005; 96374; 96375; 99285; A9270; J1940; J2405